=== PATIENT | male | born 1970 | race Caucasian/White ===

== ENCOUNTER → 2022-12-30 13:47 | Outpatient (BNVA) | payer MEDICARE, MEDICAID, SELFPAY | PROVIDERS: Family Provider Nurse Practitioner; PCP Family Medicine; Visit Provider Family Medicine | DX: Q87.89 Other specified congenital malformation syndromes, not elsewhere classified (principal); Q02 Microcephaly; M26.19 Other specified anomalies of jaw-cranial base relationship; Q53.9 Undescended testicle, unspecified; R62.50 Unspecified lack of expected normal physiological development in childhood; F84.0 Autistic disorder | CPT/HCPCS: 85025 ==

== ENCOUNTER → 2024-04-05 14:00 | Outpatient (BNVA) | payer MEDICARE, MEDICAID, SELFPAY | PROVIDERS: Family Provider Nurse Practitioner; PCP Family Medicine; Visit Provider Family Medicine | DX: D36.11 Benign neoplasm of peripheral nerves and autonomic nervous system of face, head, and neck (principal) | CPT/HCPCS: 88304 ==